=== PATIENT | female | born 1950 | race Caucasian/White ===

== ENCOUNTER 2021-12-20 12:06 | Emergency (ER) | payer MEDICARE, OTHER ==
[~2021-12-20] VITALS: Ht 162.6 cm; Wt 68.0 kg
[~2021-12-20 12:06] MED LIST: ASPI81CH; Fish Oil 10001000 MG; Lisinopril2.5 MG
[2021-12-20] MEDS ORDERED: OXYC5 PO (14:18)
== END 2021-12-20 14:26 | disposition home or self-care (01) ==
LOC: ER 12:06
DX: S42.201A Unspecified fracture of upper end of right humerus, initial encounter for closed fracture (principal); W18.30XA Fall on same level, unspecified, initial encounter
CPT/HCPCS: 73060; A9270